=== PATIENT | female | born 1965 | race Caucasian/White ===

== ENCOUNTER → 2020-09-13 | Outpatient (CLI) | payer OTHER | LOC: CT 14:12 | DX: J98.4 Other disorders of lung (principal); Q25.72 Congenital pulmonary arteriovenous malformation; J43.9 Emphysema, unspecified | CPT/HCPCS: 71260; Q9967 ==

== ENCOUNTER 2021-10-12 11:27 | Emergency (ER) | payer OTHER ==
[2021-10-12 13:08] LABS: HEMOGLOBIN 17.6 gm/dl (12.3-15.3); RED BLOOD COUNT 5.15 M/UL (4.00-5.10); WHITE BLOOD COUNT 13.2 K/UL (4.5-11.0)
[2021-10-12 13:33] LABS: BUN/CREATININE RATIO 31 (0-10)
[2021-10-12] MEDS ORDERED: METRONIDAZOLE500 MG PO (16:37)
== END 2021-10-12 17:30 | disposition home or self-care (01) ==
LOC: ER1 11:27
PROVIDERS: Physician Assistant
DX: K52.9 Noninfective gastroenteritis and colitis, unspecified (principal); F17.200 Nicotine dependence, unspecified, uncomplicated; Z85.3 Personal history of malignant neoplasm of breast; Z85.21 Personal history of malignant neoplasm of larynx; Z85.41 Personal history of malignant neoplasm of cervix uteri
CPT/HCPCS: 80053; 81001; 82272; 83605; 83690; 85025; 96374; 96375; 99284; J2270; J2405; Q9967

== ENCOUNTER → 2021-11-15 | Outpatient (CLI) | payer OTHER ==
[~2021-11-15] MED LIST: METRONIDAZOLE500 MG PO
== END ==
LOC: KOH-I 13:47
DX: F17.210 Nicotine dependence, cigarettes, uncomplicated (principal); Q25.72 Congenital pulmonary arteriovenous malformation; J43.9 Emphysema, unspecified
CPT/HCPCS: 71271

== ENCOUNTER → 2022-05-07 | Outpatient (CLI) | payer OTHER | LOC: RAD 10:53 | DX: M25.542 Pain in joints of left hand (principal); M25.572 Pain in left ankle and joints of left foot; M19.072 Primary osteoarthritis, left ankle and foot; M19.042 Primary osteoarthritis, left hand | CPT/HCPCS: 73130; 73630 ==

== ENCOUNTER → 2022-05-22 | Outpatient (CLI) | payer OTHER | LOC: EXRD 10:58 | DX: R19.09 Other intra-abdominal and pelvic swelling, mass and lump (principal) | CPT/HCPCS: 76882 ==